=== PATIENT | male | born 1985 | race Caucasian/White ===

== ENCOUNTER 2024-11-14 13:00 | Inpatient (IN) | payer OTHER ==
[2024-11-14 14:04] VITALS: BMI 39.7
[2024-11-14] MEDS ORDERED: NALOXONE (NARCAN) HCL 4 MG/0.1 ML SPRAY NS PRN (14:45)
[2024-11-14] MEDS ORDERED: MAG HYDROX/AL HYDROX/SIMETH 30 ML UNIT-DOSE CUP PO PRN (14:45)
[2024-11-14] MEDS ORDERED: BENZOCAINE/MENTHOL (CHLORASEPTIC ) LOZENGE MM PRN (14:45)
[2024-11-14] MEDS ORDERED: MAGNESIUM HYDROX 2400MG/30ML ORAL SUSPENSION 30 ML CUP PO PRN (14:45)
[2024-11-14] MEDS ORDERED: NICOTINE POLACRILEX 4 MG GUM BUC PRN (14:45)
[2024-11-14] MEDS ORDERED: LOPERAMIDE HCL 2 MG CAPSULE PO PRN (14:45)
[2024-11-14] MEDS ORDERED: POLYETHYLENE GLYCOL (HEALTHYLAX) 3350 17 GM PACKET PO PRN (14:45)
[2024-11-14] MEDS ORDERED: ACETAMINOPHEN 325 MG TABLET (FP) PO PRN (14:45)
[2024-11-14] MEDS ORDERED: BENZONATATE 200 MG CAPSULE PO PRN (14:45)
[2024-11-14] MEDS ORDERED: IBUPROFEN 400 MG TABLET (FP) PO PRN (14:45)
[2024-11-14] MEDS ORDERED: guaiFENesin 600 MG TABLET.ER (FP) PO PRN (14:45)
[2024-11-14] MEDS: THIAMINE 100 MG TABLET PO SCH (21:27)
[2024-11-14] MEDS: MELATONIN 5 MG TABLETS PO SCH (21:28)
[2024-11-14] MEDS: ACAMPROSATE CALCIUM 333 MG TABLET.DR PO SCH (21:28)
[2024-11-14 23:48] LABS: PH,URINE 5.5 (5.0-8.0); URINE APPEARANCE TURBID; URINE BILIRUBIN NEGATIVE (NEGATIVE); URINE COLOR YELLOW; URINE GLUCOSE (UA) NEGATIVE (NEGATIVE); URINE KETONE NEGATIVE (NEGATIVE); URINE LEUK ESTERASE NEGATIVE (NEGATIVE); URINE NITRITE NEGATIVE (NEGATIVE); URINE PROTEIN NEGATIVE (NEGATIVE); URINE UROBILINOGEN 0.2 mg/dL (0.2-1.0)
[2024-11-15] MEDS: PRENATAL VITAMINS W/ FOLIC ACID TABLET (FP) PO SCH (09:54)
[2024-11-15 10:28] LABS: CHLORIDE 104 mmol/L (98-107); SODIUM 139 mmol/L (136-145)
[2024-11-15 10:33] LABS: CALCIUM 8.9 mg/dL (8.5-10.1)
[2024-11-15 10:35] LABS: ALBUMIN 3.4 g/dl (3.4-5.0); ANION GAP 8 mmol/L (4-13); BLOOD UREA NITROGEN 15.8 mg/dL (7-18); CO2 27 mmol/L (21-32); GLUCOSE,RANDOM 92 mg/dL (74-106)
[2024-11-15 10:36] LABS: SGPT/ALT 57 U/L (13-61)
[2024-11-15 10:37] LABS: CREATININE 0.9 mg/dL (0.55-1.3); SGOT/AST 31 U/L (15-37)
[2024-11-15 10:38] LABS: BILIRUBIN,TOTAL 0.5 mg/dL (0.2-1)
[2024-11-15 10:39] LABS: ALK PHOS 78 U/L (45-117)
[2024-11-15 10:43] LABS: HEMATOCRIT 44.2 % (35.4-49); MCH 29.9 pg (25.7-33.7); MCHC 33.9 g/dl (32.0-35.9); MEAN CELL VOLUME 88.3 fl (80-96); MEAN PLT VOLUME 7.7 fl (7.5-11.1); PLATELET COUNT 184 10^3/uL (134-434); RBC 5.01 M/mm3 (4.00-5.60); RDW 13.7 % (11.9-15.9); WHITE BLOOD COUNT 6.6 K/mm3 (4.0-10.0)
[2024-11-15] MEDS: ESCITALOPRAM OXALATE 10 MG TABLET PO SCH (13:47)
[2024-11-15] MEDS: risperiDONE 1 MG TABLET PO SCH (13:56)
[2024-11-17] MEDS: risperiDONE 3 MG TABLET PO SCH (10:47)
[2024-11-18] MEDS: TUBERCULIN PPD 5 TU/0.1ML VIAL ID ONE (12:28)
[2024-11-24] MEDS: NALTREXONE HCL 50 MG TABLET PO ONE (18:57)
[2024-11-25] MEDS: NALTREXONE HCL 50 MG TABLET PO SCH (10:00)
[2024-11-26] MEDS: IBUPROFEN 600 MG TABLET (FP) PO PRN (09:57)
[2024-11-29] MEDS: hydrOXYzine PAMOATE 25 MG CAPSULE (FP) PO PRN (21:35)
[2024-12-02] MEDS: NALTREXONE MICROSPHERES (VIVITROL) 380 MG DISP.SYRIN IM ONE (10:00)
[2024-12-02] MEDS: NALTREXONE HCL 50 MG TABLET PO SCH (11:24)
[2024-12-02] MEDS: MELATONIN 5 MG TABLETS PO SCH (21:35)
[2024-12-11 06:50] VITALS: BP 126/78; PULSE 77; RESP 18; TEMP 98.4
== END 2024-12-11 09:22 | disposition home or self-care (01) | DRG 772 ==
LOC: YASAS 13:00 → Y5N 16:57
PROVIDERS: ADMIT Psychiatry & Neurology Pain Medicine; ATTEND Psychiatry & Neurology Pain Medicine
PROC: HZ42ZZZ Group Counseling for Substance Abuse Treatment, Cognitive-Behavioral (ICD-10-PCS; principal; 2024-11-14)
DX: F11.20 Opioid dependence, uncomplicated (principal); F10.20 Alcohol dependence, uncomplicated; F14.20 Cocaine dependence, uncomplicated; F12.20 Cannabis dependence, uncomplicated; F17.210 Nicotine dependence, cigarettes, uncomplicated; F20.9 Schizophrenia, unspecified; F19.282 Other psychoactive substance dependence with psychoactive substance-induced sleep disorder; F19.280 Other psychoactive substance dependence with psychoactive substance-induced anxiety disorder; F19.259 Other psychoactive substance dependence with psychoactive substance-induced psychotic disorder, unspecified; F32.A Depression, unspecified; Z59.00 Homelessness unspecified
CPT/HCPCS: 36415; 80053; 80305; 80307; 81003; 85027; 86780; 87811; 93005; 93010